=== PATIENT | female | born 2000 | race Caucasian/White ===

== ENCOUNTER 2024-04-27 16:52 | Emergency (ER) | payer MEDICAID ==
[~2024-04-27] VITALS: Ht 157.5 cm; Wt 78.2 kg
[2024-04-27 16:53] VITALS: TEMP 98.1
--- NOTE | 2024-04-27 17:00 | NUR ---
PT IN ER FOR SEIZURE EPISODE. REPORTS "BLACKING OUT" AND HITTING HEAD ON [place] CABINET. STATED SHE DID NOT HIT HER STOMACH BUT IS UNSURE. EFM CAT 1. VS STABLE. NO LOF, NO VAGINAL BLEEDING, NO CTX, HAD NOT FELT BABY MOVE BEFORE EXAM BUT FELT DURING. NOTIFIED WITH ORDER FOR EXTENDED MONITORING. NOTIFIED ER CHARGE NURSE, CHARGE NURSE WILL CALL BACK WHEN ER IS DONE.
[2024-04-27] MEDS ORDERED: NS 1,000 ML IV ONE (17:15)
[2024-04-27 17:28] LABS: HEMOGLOBIN 12.3 g/dl (12.5-16.0); MEAN CELL VOLUME 89 fl (80.0-100.0); MEAN CORPUSCULAR HEMOGLOBIN 30 pg (27-31); MEAN CORPUSCULAR HGB CONC 33 g/dl (33.0-37.0); MEAN PLATELET VOLUME 11.8 fl (7.4-10.4); PLATELET COUNT 182 K/mm3 (130-400); RED BLOOD COUNT 4.17 M/mm3 (4.10-5.30); REDCELL DISTRIBUTION WIDTH-CV 12.6 % (11.5-14.5)
[2024-04-27 17:32] LABS: PH 5.5 (5.0-8.5); URINE APPEARANCE CLEAR (CLEAR/HAZY); URINE BLOOD NEGATIVE (NEGATIVE); URINE COLOR YELLOW (YELLOW); URINE GLUCOSE NEGATIVE (NEGATIVE); URINE KETONE 1+ (NEGATIVE); URINE NITRATE NEGATIVE (NEGATIVE); URINE PROTEIN(semi-quant) 1+ (NEGATIVE)
[2024-04-27 17:45] LABS: ALBUMIN 3.1 g/dL (3.5-5.0); BILIRUBIN,TOTAL 0.3 mg/dL (0.2-1.2); CALCIUM 8.6 mg/dL (8.4-10.2); CREATININE, serum 0.59 mg/dL (0.57-1.11); POTASSIUM 3.9 mEq/L (3.5-4.5); TOTAL PROTEIN 6.3 g/dl (6.2-8.1)
[2024-04-27 17:46] LABS: COLLECTION METHOD CLEAN CATCH; MUCOUS PRESENT (NOT PRESENT); URINE BACTERIA MANY /hpf (NONE SEEN)
[2024-04-27 17:52] LABS: BAND 12 % (0-10); EOSINOPHIL 6 % (0-4); LYMPHOCYTE 9 % (20.0-51.0); METAMYELOCYTE 1 % (0-0); NEUTROPHILS 68 % (42.0-75.2)
[2024-04-27] MEDS ORDERED: Cephalexin 500 MG CAP PO ONE (18:00)
[2024-04-27 18:26] LABS: TRICYCLIC ANTIDEPRESS URINE NEGATIVE (NEGATIVE)
[2024-04-27] MEDS ORDERED: CEPHALEXIN500 M1 PO (18:34)
[2024-04-27 18:45] VITALS: BP 119/62; PULSE 80
[2024-04-27] MEDS ORDERED: Acetaminophen 500 MG TAB PO PRN (19:15)
== END 2024-04-27 18:51 | disposition home or self-care (01) ==
LOC: COL.ER 16:52
PROVIDERS: Family Medicine; Obstetrics & Gynecology
DX: O9A.213 Injury, poisoning and certain other consequences of external causes complicating pregnancy, third trimester (principal); S01.01XA Laceration without foreign body of scalp, initial encounter; O99.891 Other specified diseases and conditions complicating pregnancy; R56.9 Unspecified convulsions; O23.43 Unspecified infection of urinary tract in pregnancy, third trimester; N39.0 Urinary tract infection, site not specified; Z87.891 Personal history of nicotine dependence; Z3A.37 37 weeks gestation of pregnancy; Z88.2 Allergy status to sulfonamides
CPT/HCPCS: J7030

== ENCOUNTER 2024-04-27 20:17 | Outpatient (CLI) | payer MEDICAID ==
[~2024-04-27] VITALS: Ht 162.6 cm; Wt 76.4 kg
--- NOTE | 2024-04-27 19:15 | NUR ---
1900: Pt arrives via wheel chair from ED, accompanied by ED staff. Pt transfers to bed without difficulty. Pt here for extended monitoring of status after having a seizure at home. Pt placed on monitors and POC discussed. 1914: Pt reports pain to her head and hips, tells this RN that her tongue feels sore and a bit numb, and that she has a slight headache. This RN tells the pt I will ask about Tylenol for her. 1924: Pt given water and Tylenol, asks Jen Elena RN how long she will be here. Jen Elena RN informs the pt that it would be 3-4 hours that she would be here for monitoring. Pt tells the RN that she does not want to be here that long, that she needs to go home and be with her son. Jen Elena RN tells the pt that we need to monitor her for at least an hour and then we could talk to the DR about the pt's wishes. Pt aggreeable to this plan.
[2024-04-27 19:30] VITALS: BP 114/54; PULSE 83; TEMP 97.9
[~2024-04-27 20:17] MED LIST: CEPHALEXIN500 M1 PO
--- NOTE | 2024-04-27 20:30 | NUR ---
THIS RN CONTINUES TO ATTEMPT TO TRACE CTX. TOCO RESET AND THEN PT CHANGES HER POSITION. THIS RN DOES NOT PALPATE CTX, PT REPORTS FEELING ONE SMALL CTX WHILE RN WAS IN THE ROOM, BUT RN UNABLE TO PALPATE IT. PT SIGINIFICANT OTHER AT THE BEDSIDE. PT ALSO INFORMS THIS PT SHE IS READY TO GO HOME AND BE WITH HER SON.
--- NOTE | 2024-04-27 20:45 | NUR ---
DISCHARGE INSTRUCTIONS DISCUSSED WITH PT AND QUESTIONS ANSWERED. NO CONCERNS VOICED AND PT LEAVES UNIT AMBULATORY ACCOMPANIED BY SIGINIFICANT OTHER.
== END 2024-04-27 20:45 | disposition home or self-care (01) ==
LOC: LDRO 20:17
DX: O99.353 Diseases of the nervous system complicating pregnancy, third trimester (principal); G40.89 Other seizures; Z3A.37 37 weeks gestation of pregnancy

== ENCOUNTER 2024-05-15 06:19 | Inpatient (IN) | payer MEDICAID ==
[~2024-05-15] VITALS: Ht 157.5 cm; Wt 78.6 kg
[2024-05-15] VITALS (36 sets, daily range): BP systolic 96–136; BP diastolic 52–74; PULSE 67–89; TEMP 97.7–98.2
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
[2024-05-15] MEDS ORDERED: LR & Oxytocin 500 ML IV SCH (07:15)
--- NOTE | 2024-05-15 07:20 | NUR ---
PITOCIN STARTED IVPB AT 2MU/MIN PER PUMP PER PROTOCOL, VSS.
[2024-05-15] MEDS ORDERED: LR 1,000 ML IV SCH (07:45)
--- NOTE | 2024-05-15 07:50 | NUR ---
AT 0750 PITOCIN INCREASED TO 6MU/MIN, PT STARTING TO FEEL CRAMPY WITH CTX.
[2024-05-15 08:12] LABS: BASO % 0.4 % (0.0-2.0); EOS # 0.4 K/mm3 (0.0-0.7); EOS % 3.2 % (0.0-4.0); GRAN # 8.1 K/mm3 (1.4-6.5); GRAN % 72.2 % (42.2-75.2); LYMPH # 1.5 K/mm3 (1.2-3.4); LYMPH % 13.4 % (20.0-51.0); MEAN CELL VOLUME 90 fl (80.0-100.0); MEAN CORPUSCULAR HEMOGLOBIN 29 pg (27-31); MEAN CORPUSCULAR HGB CONC 33 g/dl (33.0-37.0); MEAN PLATELET VOLUME 12.9 fl (7.4-10.4); MONO # 1.1 K/mm3 (0.1-0.6); MONO % 9.5 % (1.7-9.3); PLATELET COUNT 199 K/mm3 (130-400); RED BLOOD COUNT 4.08 M/mm3 (4.10-5.30); REDCELL DISTRIBUTION WIDTH-CV 13.5 % (11.5-14.5)
--- NOTE | 2024-05-15 08:13 | NUR ---
EFM OFF AT 0813, PT UP TO BATHROOM, VOIDS 200CC OF CLEAR YELLOW URINE, RET TO BED AND REPOSITIONED AT 0825, EFM ON.
[2024-05-15 08:14] LABS: HEMATOCRIT 36.8 % (37.0-47.0)
--- NOTE | 2024-05-15 08:23 | NUR ---
RT TO BED FROM RESTROOM, REPOSITIONED, EFM ON.
--- NOTE | 2024-05-15 08:45 | NUR ---
IN ROOM AT 0838, VIEWS STRIP, DISCUSSES PLAN OF CARE WITH PT, SVE DONE, 3CM,80, -1 STATION, AROM WITH IMMED MODERATE AMT OF CLEAR FLUID RET AT 0841, PT TOLERTAED WELL, FHR 120, OK FOR EPIDURAL ANYTIME.
--- NOTE | 2024-05-15 09:00 | NUR ---
CTX GETTING MUCH STRONGER FOLLOWING AROM, PT HELPED POSITIONED UP TO HANDS AND KNEES PER REQUEST AT 0855, BABE TOLERATES WELL, REQUESTS EPIDURAL SOON POSSIBLE, IVF BOLUS INITIATED, PADMINI-EDELMIRA ON UNIT, WILL COME PLACE EPIDURAL.
[2024-05-15] MEDS ORDERED: ROPivacaine PF 0.2% 200 ML IV ONE (09:05)
--- NOTE | 2024-05-15 09:05 | NUR ---
AT 0905 EFM OFF, PT UP TO VOID PRIOR TO EPIDURAL, VOIDS 200CC OF CLEAR YELLOW URINE, IVF BOLUS INFUSING FOR EPIDURAL PLACEMENT, PT POSITONED SITTING UP ON SIDE OF BED AT 0908, FHR 120'S, PADMINI-HAND VIOLIN MAKER AT BEDSIDE TO PLACE EPIDURAL-SEE ANESTHESIA RECORD.
--- NOTE | 2024-05-15 09:30 | NUR ---
PT SITTING UP ON SIDE OF BED, VSS, EPIDURAL PLACEMENT BY PADMINI, SINGLE SHOT AT 0916, VITAL SIGNS REMAIN STABLE, FHR 120'S, PT REPOSTIONED AT 0925 WEDGED ON RIGHT SIDE FOR EPIDURAL TO BE BALANCED AND FOR PT COMFORT.
--- NOTE | 2024-05-15 09:45 | NUR ---
AT 0940 STILL FEELING A LOT OF PAIN IN RIGHT HIP/BACK AND THIGH WITH CTX, POSITIONED UP ON RIGHT SIDE AND EPIDURAL PARIMUTUEL TICKET CASHIER PUMP DOSED BY PT FOR COMFORT, RATING CTX PAIN A 9/10 ON RIGHT SIDE AND HAVING TO BREATH THROUGH.
--- NOTE | 2024-05-15 10:00 | NUR ---
PT CONTINUES TO C/O RIGHT HIP PAIN WITH EPIDURAL PLACEMENT RATES 05/23, POSITIONED WAY UP ON RIGHT SIDE AND EPIDURAL BUTTON PUSHED, SUPPORT PERSON AT SIDE, PT CONTINUES TO BREATH WELL WITH CTX. SVE 4CM/85/-2 STATION, PT TOLERATED EXAM WELL AND POSIITIONED BACK UP ON RIGHT SIDE.
--- NOTE | 2024-05-15 10:15 | NUR ---
CTX PAIN IS GETTING BETTER ON RIGHT SIDE, RATES 3/10.
--- NOTE | 2024-05-15 10:30 | NUR ---
AT 1020 REMAINS ON UNIT, UPDATED PT IS 4CM, COMFORTABLE WITH EPIURAL. CTX 1.5 MIN, PITOCIN FOR LAST 3 CTX, PITOCIN DECREASED TO 4MU/MIN PER PUMP, PT FEELING BETTER WTIH CTX UP ON RIGHT SIDE.
[2024-05-15] MEDS ORDERED: diphenhydrAMINE 25 MG CAP PO PRN (10:45)
[2024-05-15] MEDS ORDERED: ePHEDrine 50 MG/10 ML VIAL IV PRN (10:45)
[2024-05-15] MEDS ORDERED: Ondansetron 4 MG/2 ML VIAL IV PRN (10:45)
[2024-05-15] MEDS ORDERED: diphenhydrAMINE 50 MG/ML 1 ML VIAL IV PRN (10:45)
[2024-05-15] MEDS ORDERED: Naloxone 0.4 MG/ML VIAL IV PRN ×2 (10:45→14:45)
--- NOTE | 2024-05-15 11:00 | NUR ---
RESTING WITH EYES CLOSED.
--- NOTE | 2024-05-15 11:45 | NUR ---
AT 1150, CANALES CATHETER PLACED WITH IMMEDIATE CLEAR YELLOW URINE RET, 10CC SALINE BALLOOON INFLATED, TO DEPENDANT DRAINAGE, PT NOT FEELING CTX AT ALL, LEGS ARE VERY NUMB, SVE 6CM/100/-1 STATION, TOM CARE DONE, MORE NUMBNESS ON L.SIDE, POSTIIONED UP ON RIGHT SIDE WITH PILLOWS FOR COMFORT, VSS.
--- NOTE | 2024-05-15 12:30 | NUR ---
PITOCIN DECREASED TO 2MU/MIN FOR CTX 1.5 MIN FOR LAST 4 CTX.
--- NOTE | 2024-05-15 13:00 | NUR ---
MALIHA AT 1300, PT COMPLETE, 0 STATION, UNABLE TO FEEL CTX, PARKER DC'D OF 300CC OF CLEAR YELLOW URINE, DR. HOOD PHONED AT 1304, LET HIM KNOW PT COMPLETE, PTICON OFF, NOT FEELING CTX, WILL TRY PUSHING AND SEE HOW SHE DOES AND KEEP HIM UPDATED,
--- NOTE | 2024-05-15 13:30 | NUR ---
PT ATTEMPTS PUSHING WITH CTX UNABLE TO MOVE LEFT LEG AT ALL, VERY NUMB WITH CTX, PUSHES WITH LITTLE MOVEMENT OF BABY AT 1310, REQUESTING TO TURN OFF EPIDURAL, CALLED DONAL, OK TO TURN OFF EPIDURAL PUMP AND SHE CAN COME BOLUS PT IF NEEDED AT DELIVERY, PT POSTIONED UP ON RIGHT SIDE AT 1325 TO REST THROUGH A FEW CTX.
--- NOTE | 2024-05-15 13:45 | NUR ---
AT 1345, PT PUSHING WELL WITH CTX, PHONED FOR DELIVERY, NURSERY NURSE AND CHARGE NURSE ALSO UPDATED ON PT PROGRESS, ON THE WAY.
--- NOTE | 2024-05-15 14:00 | NUR ---
AT 1401 IN ROOM, VIEWS STRIP, PUSHES WITH PT, PT IS BRINGING BABY DOWN WELL WITH CTX,
--- NOTE | 2024-05-15 14:15 | NUR ---
PT CONTINUES TO PUSH WELL WITH CTX, SET UP FOR DELIVERY, FHR DECREASED TO 80'S-90'S WITH CTX AND PUSHING FOR LAST 6 CTX, FHR UP TO 120'S BETWEEN PUSHES WITH GOOD VARIABLITY, PREP BY , VANCE-RN NURSERY NURSE AND AHSAN MOLINA-DAVID DE JESUS ALSO IN ROOM, SEE LABOR AND DELIVERY SUMMARY NOTE.
--- NOTE | 2024-05-15 14:20 | NUR ---
OF M/C WITH 8/9 APGARS AT 1417 OVER 1ST DEGREE LACERATION BY , PITOCIN OFF, BABE TO MOMS ABDOMEN, +BONDING, SENDY/SUPPORT PERSON AT SIDE, SPONTANEOUS PLACENTA AT 1420, PITOCIN INFUSING AT 333MU/MIN PER ORDER PER PUMP, MOM TOLDERATES REPAIR WELL.
--- NOTE | 2024-05-15 14:30 | NUR ---
VSS, ICE TO SWOLLEN PERINEUM, BABE ON MOMS CHEST, SUPPORT PERSON AT SIDE, FUNDUS FIRM, WARM BLANKET AND ICE WATER GIVEN.
[2024-05-15] MEDS ORDERED: Magnes Hydrox (MOM) 80 MG/ML 30 ML CUP PO PRN (14:45)
[2024-05-15] MEDS ORDERED: Acetaminophen 500 MG TAB PO SCH (14:45)
[2024-05-15] MEDS ORDERED: Mag/Al Hydrox/Simeth Susp 30 ML CUP PO PRN (14:45)
[2024-05-15] MEDS ORDERED: Loratadine 10 MG TAB PO PRN (14:45)
[2024-05-15] MEDS ORDERED: Ibuprofen 600 MG TAB PO SCH (14:45)
[2024-05-15] MEDS ORDERED: Measles/Mumps/Rubella Virus Vaccine Live w Diluent 0.5 ML VIAL SQ SCH (14:45)
[2024-05-15] MEDS ORDERED: Witch Hazel 50% Pads Bulk TUB TP PRN (14:45)
[2024-05-15] MEDS ORDERED: Phenylephrine/Mineral Oil/Petrolatum 57 GM TUBE RC PRN (14:45)
[2024-05-15] MEDS ORDERED: oxyCODONE 5 MG TAB PO PRN (14:45)
--- NOTE | 2024-05-15 14:45 | NUR ---
BABE TO BREAST, OCCASIONAL SUCKLES, FUNDUS FIRM, DENIES PAIN.
--- NOTE | 2024-05-15 15:00 | NUR ---
FUNDUS FIRM, BABE STILL AT BREAST WITH OCCASIONAL SUCKLES NOTED.
--- NOTE | 2024-05-15 16:00 | NUR ---
PITOCIN INFUSED, IV CAPPED TO INT, PT TOLEREATING FLUIDS WELL, FUNDUS REMAINS FIRM, NEW ICE PACK TO SWOLLEN LABIA, DENIES PAIN, LEGS ARE STILL PRETTY NUMB, BUT GETTING MORE MOVEMENT. REQUEST EPIDURAL OUT, CATHETER OUT AT THIS TIME WITH CATHETER TIP INTACT.
--- NOTE | 2024-05-15 16:30 | NUR ---
SITTING UP IN BED EATING SUPPER, GOOD APPETITE, RIGHT LEG HAS GOOD MOVEMENT, LFET LEG MOVING BUT STILL VERY NUMB.
[2024-05-15] MEDS ORDERED: Sennosides/Docusate 8.6-50 MG TAB PO SCH (17:00)
--- NOTE | 2024-05-15 17:30 | NUR ---
AT 1715, FUNDUS MASSAGED OFF TO THE SIDE OF UMBILLICUS, UNABLE TO RAISE LEGS OFF BED X 3 SEC, NO URGE TO VOID, BOTTOM FEELING NUMB, ST CATH WITH 1150 CLEAR YELLOW URINE RET, FUNDUS MASSAGED FIRM AT UMBLILLICUS FOLLOWING WITH SCANT FLOW, NEW ICE PACK TO SWOLLEN PERINEUM, PANTIES ON. PT VSS, TRANSFERRED TO [facility] BY THIS NURSE AND BALJINDER WITH KEVIN ATKINSON, DENIES NAUSEA, LIGHTHEADEDNESS OR SHORTENSS OF BREATH, ORIENTED TO [facility], CALL LIGHT, EDUCATION PACKET AND PLAN OF CARE, KNOWS TO CALL FOR FIRST VOID CHECK OR TO GET UP, DENIES PAIN AT THIS TIME.
--- NOTE | 2024-05-15 20:50 | NUR ---
Pt called out requesting help to bathroom and reporting lower abdomen pain. Pt able to ambulate to bathroom with standby assistance but reports pain is worse with standing. Unable to void at this time and is requesting to be straight cathed. Straight cath performed at this time by this RN. 1700 mL clear, yellow urine out.
[2024-05-15] MEDS ORDERED: traZODone 50 MG TAB PO PRN (21:00)
[2024-05-16 00:30] VITALS: BP 91/48; PULSE 58; TEMP 98.1
[2024-05-16 04:30] VITALS: BP 107/64; PULSE 70; TEMP 98
[2024-05-16 08:30] VITALS: BP 96/46; PULSE 74
[2024-05-16] MEDS ORDERED: IBU600 MG PO (08:34)
--- NOTE | 2024-05-16 09:14 | NUR ---
Initial visit; Parents thanked Math Teacher for looking in on them and offering congratulations and God's blessings for the of their son. Math Teacher also commented on the wonderful name they chose for their son.
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
== END 2024-05-16 17:15 | disposition home or self-care (01) | DRG 560 ==
LOC: LDR 06:19 → OB 17:45 → LDR 22:18 → OB 05-16 17:15
PROVIDERS: ADMIT Obstetrics & Gynecology
PROC: 10E0XZZ Delivery of Products of Conception, External Approach (ICD-10-PCS; principal; 2024-05-15)
PROC: 0HQ9XZZ Repair Perineum Skin, External Approach (ICD-10-PCS; 2024-05-15)
PROC: 10907ZC Drainage of Amniotic Fluid, Therapeutic from Products of Conception, Via Natural or Artificial Opening (ICD-10-PCS; 2024-05-15)
PROC: 3E033VJ Introduction of Other Hormone into Peripheral Vein, Percutaneous Approach (ICD-10-PCS; 2024-05-15)
DX: O99.354 Diseases of the nervous system complicating childbirth (principal); Z37.0 Single live birth; G40.409 Other generalized epilepsy and epileptic syndromes, not intractable, without status epilepticus; O99.344 Other mental disorders complicating childbirth; F32.A Depression, unspecified; O70.0 First degree perineal laceration during delivery; Z3A.39 39 weeks gestation of pregnancy
CPT/HCPCS: J2590; J2795; J7120